=== PATIENT | female | born 1935 | race Caucasian/White ===

== ENCOUNTER 2022-05-14 08:59 | Day surgery (SDC) | payer MEDICARE, MEDICAID ==
[~2022-05-14] VITALS: Ht 152.4 cm; Wt 90.9 kg
[~2022-05-14 08:59] MED LIST: BLACK ELDERBER1 EACH PO; CARDIZEM120 MG PO; DAILY VITAMIN1 EAC1 PO; FLEXERIL10 MG PO; LO-DOSE ASPIRIN81 MG PO; POTASSIUM CHLO10 MEQ PO; SERTRALINE HCL50 MG PO; SPIRONOLACTONE25 MG PO; TURMERIC500 M2 PO; TYLENOL325 MG PO; UNIVASC15 MG PO; VITAMIN D-32000 UNIT PO; WARFARIN SODIUM3 MG PO; WARFARIN SODIUM5 MG PO; ZESTRIL20 MG PO
--- NOTE | 2022-05-15 12:17 | OR ---
[facility] [address], [place] [address] Signed DATE OF OPERATION: 05/14/2022 SURGEON: Renetta Ko MD PREOPERATIVE DIAGNOSES: 1. Symptomatic dysphagia. 2. Cervical osteoarthritis. 3. Right posterior thyroid lobe nodule, 2.5 cm. POSTOPERATIVE DIAGNOSES: 1. Symptomatic dysphagia. 2. Cervical osteoarthritis. 3. Right posterior thyroid lobe nodule, 2.5 cm. PROCEDURES: 1. Right ultrasound-guided fine-needle aspiration biopsy. 2. Right posterior thyroid lobe nodule. ANESTHESIA: 3 mL of 0.25% Marcaine. DESCRIPTION OF PROCEDURE: In the supine position with a shoulder roll placed and mild neck extension (patient limited in neck extension), the neck was interrogated with a SonImagiin. ultrasound device. There appeared to be a somewhat poorly demarcated right posterior thyroid lobe nodule concordant to the previously reported nodule. The area was prepared with chlorhexidine solution and draped sterilely. A 0.25% Marcaine with epinephrine injected locally. Using a 22-gauge needle on a control-tip syringe under ultrasonographic guidance with a sterile sleeve over the ultrasound device interrogation of the right posterior thyroid lobe nodular area was undertaken. Multiple passes were taken through the area. It was somewhat bloody and was offloaded to a specimen container. With the similar technique, additional efforts were made for fine-needle aspiration biopsy of the lesion and placed into a separate container that specimen too was somewhat bloody. There was no evidence of bleeding or hematoma development. A Band-Aid was applied. She tolerated the procedure well. Renetta Ko MD Electronically Signed By: RENETTA KO MD 05/15/22 1217 PATIENT NAME: CYNDI LERMA OPERATIVE REPORT DATE OF : 37 REPORT #: [id number] PHYSICIAN: RENETTA KO MD PCP: VICENTE LOO MD REPORT IS CONFIDENTIAL AND NOT TO BE RELEASED WITHOUT AUTHORIZATION [address] [place] [address] Signed /MODL /[id number] cc: Dr. Loo Copies: ~ Electronically Signed By: RENETTA KO MD 05/15/22 1217 PATIENT NAME: CYNDI LERMA OPERATIVE REPORT DATE OF : 37 REPORT #: [id number] PHYSICIAN: RENETTA KO MD PCP: VICENTE LOO MD REPORT IS CONFIDENTIAL AND NOT TO BE RELEASED WITHOUT AUTHORIZATION
== END 2022-05-14 11:40 | disposition home or self-care (01) ==
LOC: OPS 08:59 → DS 08:59 → EDSTATUS 10:00 → DS 10:00 → OPS 10:00 → DS 12:30
PROVIDERS: ATTEND Surgery
PROC: 0GBH4ZX Excision of Right Thyroid Gland Lobe, Percutaneous Endoscopic Approach, Diagnostic (ICD-10-PCS; principal; 2022-05-14)
DX: E04.1 Nontoxic single thyroid nodule (principal); M19.09 Primary osteoarthritis, other specified site; R13.19 Other dysphagia; I48.91 Unspecified atrial fibrillation; J45.909 Unspecified asthma, uncomplicated; Z85.528 Personal history of other malignant neoplasm of kidney; Z79.01 Long term (current) use of anticoagulants; Z87.19 Personal history of other diseases of the digestive system; Z88.1 Allergy status to other antibiotic agents